=== PATIENT | female | born 1995 | race Caucasian/White ===

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

== ENCOUNTER 2017-01-06 12:51 | Outpatient (CLI) | payer OTHER | END 2017-01-06 12:52 | disposition critical access hospital (66) | DX: F41.9 Anxiety disorder, unspecified (principal); R52 Pain, unspecified; R25.2 Cramp and spasm | CPT/HCPCS: A0425; A0429 ==

== ENCOUNTER 2017-01-06 13:15 | Emergency (ER) | payer OTHER ==
[2017-01-06] MEDS ORDERED: SODIUM CHLORIDE 0.9% 1,000 ML IV ONE (14:16)
[2017-01-06] MEDS ORDERED: PROCHLORPERAZINE 10 MG/2 ML VIAL IVP STA (14:16)
[2017-01-06] MEDS ORDERED: DEXAMETHASONE 10 MG/ML VIAL IVP STA (14:16)
[2017-01-06] MEDS ORDERED: diphenhydrAMINE INJ 50 MG/ML VIAL IVP STA (14:16)
[2017-01-06] MEDS ORDERED: PROCHLORPERAZINE 10 MG/2 ML VIAL ONE (14:23)
[2017-01-06] MEDS ORDERED: diphenhydrAMINE INJ 50 MG/ML VIAL ONE (14:23)
[2017-01-06] MEDS ORDERED: DEXAMETHASONE 10 MG/ML VIAL ONE (14:24)
[2017-01-06] MEDS ORDERED: KETOROLAC 30 MG/ML VIAL IVP STA (14:33)
[2017-01-06] MEDS ORDERED: KETOROLAC 30 MG/ML VIAL ONE (14:38)
== END 2017-01-06 15:19 | disposition home or self-care (01) ==
DX: R51 Headache (principal); R03.0 Elevated blood-pressure reading, without diagnosis of hypertension; I34.1 Nonrheumatic mitral (valve) prolapse

== ENCOUNTER 2017-03-03 14:02 | Outpatient (CLI) | payer OTHER | END 2017-03-03 14:03 | disposition critical access hospital (66) | LOC: EMS 14:02 | PROVIDERS: ATTEND Surgery | DX: G43.909 Migraine, unspecified, not intractable, without status migrainosus (principal) | CPT/HCPCS: A0425; A0427 ==

== ENCOUNTER 2017-03-03 14:16 | Emergency (ER) | payer OTHER ==
--- NOTE | 2017-03-03 14:36 | ED Physician Documentation ---
PD HPI HEADACHE - Stated complaint Stated Complaint: R SIDED NUMBNESS VISION CHANGE - Chief complaint Chief Complaint: Neuro - History obtained from History obtained from: Patient - History of Present Illness Timing - onset: How many minutes ago (30) Timing - onset during: Light activity Timing - duration: Minutes (30 minutes ago, had right visual flashes and then right facial weakness, associated with headache. Has had similar symptoms a few times this year Dx as migraines. Had MRI brain done by PCP a month ago and was normal. Pt states has gotten Rx for Ibuprofen and Zofran for the headaches. Had gotten other meds Rx from ED on prior visits that worked well, per patient ( Promethazine PRN and Topiramate daily low dose).) Timing - details: Abrupt onset, Now resolved (vision and weakness improved but still with migraine EMERSON.) Worst headache ever?: No: Worst headache ever? (similar to other migraines.) Location: Front, Right Quality: Throbbing, Aching Associated symptoms: Nausea, Weakness (right face and arm). No: Fever, Stiff neck, Vomiting, Numbness, Seizure Improved by: No: Meds (ibuprofen) Worsened by: Light, Noise Contributing factors: No: Anticoagulated, Recent illness, Trauma Similar symptoms before: Diagnosis (migraine headaches new diagnosis in the past 6 months) Review of Systems Constitutional: denies: Fever, Chills Nose: denies: Rhinorrhea / runny nose, Congestion Throat: denies: Sore throat Respiratory: denies: Cough GI: reports: Nausea. denies: Abdominal Pain, Vomiting, Diarrhea : denies: Dysuria, Frequency, Missed period Skin: denies: Rash, Lesions Neurologic: denies: Syncope, Altered mental status, Head injury Psychiatric: denies: Depressed, Anxiety Endocrine: denies: Weight loss, Weight gain, Easy bruising / bleeding PD PAST MEDICAL HISTORY - Past Medical History Past Medical History: Yes Cardiovascular: Valve disorder Neuro: Headache/migraine Psych: Anxiety - Past Surgical History Past Surgical History: Yes HEENT: Tonsil/Adenoidectomy - Present Medications Home Medications: Ambulatory Orders Medication Instructions Recorded Confirmed Hydrocodone/Acetaminophen [[place] 1 each PO Q6H PRN #15 tablet 03/03/17 5-325 Tablet] Ibuprofen 400 mg PO TID PRN #20 tablet 03/03/17 Promethazine [Phenergan] 25 mg PO Q6H PRN #20 tab 03/03/17 Topiramate 25 mg PO DAILY #30 tablet 03/03/17 - Allergies Allergies/Adverse Reactions: Allergies Allergy/AdvReac Type Severity Reaction Status Date / Time acetaminophen [From Midol] Allergy Unknown Verified 03/03/17 14:24 pamabrom [From Midol] Allergy Unknown Verified 03/03/17 14:24 Sulfa (Sulfonamide Allergy Rash Verified 03/03/17 14:24 Antibiotics) - Social History Does the pt smoke?: No Smoking Status: Never smoker Does the pt drink ETOH?: No Does the pt have substance abuse?: No - Immunizations Immunizations are current?: No Immunizations: TDAP >10years/unknown PD ED PE NORMAL - Vitals Vital signs reviewed: Yes - General General: Alert and oriented X 3, No acute distress, Well developed/nourished - HEENT HEENT: PERRL, EOMI (light sensitive) - Neck Neck: Supple, no meningeal sign, No adenopathy - Cardiac Cardiac: RRR, No murmur - Respiratory Respiratory: Clear bilaterally - Abdomen Abdomen: Soft, Non tender - Derm Derm: Normal color, Warm and dry - Extremities Extremities: No tenderness to palpate, Normal ROM s pain, No edema, No calf tenderness / cord - Neuro Neuro: Alert and oriented X 3, 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 She has normal neuro exam still. ), considered differential (has had similar with migraines in the past. She says she gets them about 2-3 times per week moderate and has had 3-4 of these complex migraines with visual change or weakness. She had gotten Rx for prophylactic med in Sep and says she had less to none that month. Had been to PMD and gotten Rx for Ibuprofen for them. DId have MRI head done which was normal. ), d/w patient Departure - Departure Disposition: 01 Home, Self Care Clinical Impression: Migraine Qualifiers: Migraine type: hemiplegic Status migrainosus presence: without status migrainosus Intractability: not intractable Qualified Code(s): G43.409 - Hemiplegic migraine, not intractable, without status migrainosus Condition: Stable Record reviewed to determine appropriate education?: Yes Instructions: ED Headache Migraine Follow-Up: [facility] [Provider Group] Prescriptions: Ibuprofen 400 mg PO TID PRN #20 tablet PRN Reason: Headache Hydrocodone/Acetaminophen [[place] 5-325 Tablet] 1 each PO Q6H PRN #15 tablet PRN Reason: Pain Promethazine [Phenergan] 25 mg PO Q6H PRN #20 tab PRN Reason: Nausea / Vomiting Topiramate 25 mg PO DAILY #30 tablet Comments: Since your headaches are frequent enough, you may benefit from taking a medication daily to try to reduce the frequency of them. Topirimate nightly for the next month to see if less often headaches. For the migraines, try promethazine and Ibuprofen for them when you get one, and add Tylenol or hydrocodone as needed if not improved with those. Follow up with PMD in a few weeks to see how this regimen is doing. Discharge Date/Time: 03/03/17 16:09
[2017-03-03] MEDS ORDERED: SODIUM CHLORIDE 0.9% 1,000 ML IV ONE (14:52)
[2017-03-03] MEDS ORDERED: KETOROLAC 60 MG/2 ML VIAL IVP STA (14:52)
[2017-03-03] MEDS ORDERED: diphenhydrAMINE INJ 50 MG/ML VIAL IVP STA (14:53)
[2017-03-03] MEDS ORDERED: METOCLOPRAMIDE 10 MG/2 ML VIAL IVP STA (14:53)
[2017-03-03] MEDS ORDERED: KETOROLAC 30 MG/ML VIAL ONE (15:28)
[2017-03-03] MEDS ORDERED: METOCLOPRAMIDE 10 MG/2 ML VIAL ONE (15:28)
[2017-03-03 16:10] VITALS: BP 111/63
== END 2017-03-03 16:09 | disposition home or self-care (01) ==
LOC: EDUNIT# → ED 14:16
DX: G43.409 Hemiplegic migraine, not intractable, without status migrainosus (principal)
CPT/HCPCS: 96374; 96375; 99284

== ENCOUNTER 2017-06-08 12:15 | Outpatient (CLI) | payer OTHER | END 2017-06-08 12:16 | disposition short-term general hospital (02) | LOC: EMS 12:15 | PROVIDERS: ATTEND Surgery | DX: F41.9 Anxiety disorder, unspecified (principal); R51 Headache; R11.0 Nausea | CPT/HCPCS: A0425; A0429 ==

== ENCOUNTER 2017-08-05 15:56 | Outpatient (CLI) | payer OTHER | END 2017-08-05 15:57 | disposition critical access hospital (66) | LOC: EMS 15:56 | PROVIDERS: ATTEND Surgery | DX: R06.02 Shortness of breath (principal) | CPT/HCPCS: A0425; A0427 ==

== ENCOUNTER 2017-08-05 16:17 | Emergency (ER) | payer OTHER ==
[2017-08-05 17:05] LABS: BILIRUBIN,URINE NEGATIVE (NEGATIVE)
[2017-08-05 17:08] LABS: HCG UR QUAL NEGATIVE; UA w/ MICROSCOPIC CHARGE YES
[2017-08-05 17:30] LABS: WBC,URINE 0-3 /HPF (0-5)
--- NOTE | 2017-08-05 17:30 | ED Physician Documentation ---
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 denies: Palpitations Respiratory: reports: Dyspnea. denies: Cough GI: denies: Abdominal Pain, Nausea, Vomiting, Diarrhea : reports: LMP (07/26) Musculoskeletal: reports: Extremity pain (cramping hands and legs) Endocrine: denies: Easy bruising / bleeding Immunocompromised: denies: Immunocompromised PD PAST MEDICAL HISTORY - Past Medical History Past Medical History: Yes Cardiovascular: Valve disorder Neuro: Headache/migraine Psych: Anxiety - Past Surgical History Past Surgical History: Yes HEENT: Tonsil/Adenoidectomy - Present Medications Home Medications: Ambulatory Orders Medication Instructions Recorded Confirmed Hydrocodone/Acetaminophen [[place] 1 each PO Q6H PRN #15 tablet 03/03/17 5-325 Tablet] Ibuprofen 400 mg PO TID PRN #20 tablet 03/03/17 Promethazine [Phenergan] 25 mg PO Q6H PRN #20 tab 03/03/17 Topiramate 25 mg PO DAILY #30 tablet 03/03/17 Azithromycin [Zithromax] 250 mg PO DAILY #6 tablet 08/05/17 - Allergies Allergies/Adverse Reactions: Allergies Allergy/AdvReac Type Severity Reaction Status Date / Time acetaminophen [From Midol] Allergy Unknown Verified 03/03/17 14:24 pamabrom [From Midol] Allergy Unknown Verified 03/03/17 14:24 Sulfa (Sulfonamide Allergy Rash Verified 03/03/17 14:24 Antibiotics) - Social History Does the pt smoke?: No Smoking Status: Never smoker Does the pt drink ETOH?: No Does the pt have substance abuse?: No - Immunizations Immunizations are current?: No Immunizations: TDAP >10years/unknown PD ED PE NORMAL - Vitals Vital signs reviewed: Yes - General General: Alert and oriented X 3 - HEENT HEENT: PERRL - Neck Neck: Supple, no meningeal sign - Cardiac Cardiac: RRR, No murmur - Respiratory Respiratory: No respiratory distress, Clear bilaterally - Abdomen Abdomen: Soft, Non tender - Derm Derm: Normal color - Extremities Extremities: No edema, Other (mild shawn calf TTP s discoloration or edema) - Neuro Neuro: Alert and oriented X 3 Results - Vitals Vitals: Vital Signs - 24 hr 08/05/17 08/05/17 08/05/17 16:23 16:35 17:29 Temperature 37.4 C Heart Rate 100 90 Respiratory 16 18 Rate Blood Pressure 117/71 Blood Pressure 117/81 H [Right] O2 Saturation 100 100 08/05/17 19:51 Temperature 37.1 C Heart Rate 75 Respiratory 16 Rate Blood Pressure 107/69 Blood Pressure [Right] O2 Saturation 96 Oxygen O2 Source Room air - EKG (time done) 1627 Rate: Rate (enter#) (100) Rhythm: NSR [place]: Normal Intervals: Normal ME Ischemia: Normal ST segments - Labs Labs: Laboratory Tests 08/05/17 08/05/17 08/05/17 16:45 17:33 17:35 WBC 5.2 RBC 4.06 L Hgb 12.1 Hct 35.3 L MCV 86.9 MCH 29.7 MCHC 34.2 RDW 12.3 Plt Count 211 MPV 10.0 Neut # 2.6 Lymph # 1.9 [place] # 0.5 Eos # 0.1 Baso # 0.1 Absolute Nucleated RBC 0.00 Nucleated RBC % 0.0 D-Dimer 221.5 Sodium Potassium Chloride Carbon Dioxide Anion Gap BUN Creatinine Estimated GFR (MDRD) Glucose Calcium Total Bilirubin AST ALT Alkaline Phosphatase Troponin I Total Protein Albumin Globulin Albumin/Globulin Ratio Lipase Urine Color YELLOW Urine Clarity SL. CLOUDY Urine pH 7.0 Ur Specific [place] 1.010 Urine Protein NEGATIVE Urine Glucose (UA) NEGATIVE Urine Ketones NEGATIVE Urine Occult Blood NEGATIVE Urine Nitrite NEGATIVE Urine Bilirubin NEGATIVE Urine Urobilinogen 0.2 (NORMAL) Ur Leukocyte Esterase NEGATIVE Urine RBC None Seen Urine WBC 0-3 Ur Squamous Epith Cells MOD Squamous H Amorphous Sediment Marked Urine Bacteria None Seen Ur Microscopic Review INDICATED Urine Culture Comments NOT INDICATED Urine HCG, Qual NEGATIVE 08/05/17 08/05/17 17:35 17:35 WBC RBC Hgb Hct MCV MCH MCHC RDW Plt Count MPV Neut # Lymph # [place] # Eos # Baso # Absolute Nucleated RBC Nucleated RBC % D-Dimer Sodium 140 Potassium 3.4 L Chloride 105 Carbon Dioxide 25 Anion Gap 10.0 BUN 7 Creatinine 0.6 Estimated GFR (MDRD) 127 Glucose 104 H Calcium 9.0 Total Bilirubin 0.4 AST 18 ALT < 10 L Alkaline Phosphatase 40 L Troponin I < 0.04 Total Protein 7.3 Albumin 4.2 Globulin 3.1 Albumin/Globulin Ratio 1.4 Lipase 26 Urine Color Urine Clarity Urine pH Ur Specific [place] Urine Protein Urine Glucose (UA) Urine Ketones Urine Occult Blood Urine Nitrite Urine Bilirubin Urine Urobilinogen Ur Leukocyte Esterase Urine RBC Urine WBC Ur Squamous Epith Cells Amorphous Sediment Urine Bacteria Ur Microscopic Review Urine Culture Comments Urine HCG, Qual - Rads (name of study) CXR Radiology: See rad report (L posterior infiltrate) CTPA Radiology: See rad report (no PE, dense lobulated consolidation, rec follo up to confirm clearing) PD MEDICAL DECISION MAKING - ED course ED course: EKG neg needed HCG to proceed - it is neg PERC + (HR > 100 during my exam) d dimer neg ordered CXR and meds CXT with consolidation - but no fever cough = PERC + but d dimer WNL - need to explain opacity - sx not c/w pna - will CT Departure - Departure Disposition: 01 Home, Self Care Clinical Impression: Pneumonia Qualifiers: Pneumonia type: due to unspecified organism Laterality: left Lung location: lower lobe of lung Qualified Code(s): J18.1 - Lobar pneumonia, unspecified organism Condition: Good Instructions: ED Pneumonia Adult Follow-Up: [facility] [Primary Care Provider] - Prescriptions: Azithromycin [Zithromax] 250 mg PO DAILY #6 tablet Comments: The xray and then the CT scan showed a somewhat unusual looking infection in the lower left lung. I have prescribed antibiotics But it is very important that your follow up with your PMD in about 2 weeks to get repeat imaging to be sure the abnormality clears up with antibiotics. If it does not you might need a referral to a lung specialist Recommend motrin and robitussin AC as neded for pain Return if worse
[2017-08-05 17:39] LABS: UR CULTURE IF IND NOT INDICATED
[2017-08-05] MEDS ORDERED: KETOROLAC 60 MG/2 ML VIAL IVP STA (18:28)
[2017-08-05 18:42] LABS: BASOPHILS # (AUTO) 0.1 10^3/uL (0.0-0.1); BASOPHILS % (AUTO) 1.1 %; EOSINOPHILS # (AUTO) 0.1 10^3/uL (0.0-0.7); EOSINOPHILS % (AUTO) 2.5 %; HCT - HEMATOCRIT 35.3 % (37.0-47.0); HGB - HEMOGLOBIN 12.1 g/dL (12.0-16.0); LYMPHOCYTES # (AUTO) 1.9 10^3/uL (1.5-3.5); LYMPHOCYTES % (AUTO) 37.2 %; MEAN CORPUSCULAR HEMOGLOBIN 29.7 pg (27.0-31.0); MEAN CORPUSCULAR HGB CONC 34.2 g/dL (32.0-36.0); MEAN CORPUSCULAR VOLUME 86.9 fL (81.0-99.0); MONOCYTES # (AUTO) 0.5 10^3/uL (0.0-1.0); MONOCYTES % (AUTO) 9.7 %; NEUTROPHILS # (AUTO) 2.6 10^3/uL (1.5-6.6); NEUTROPHILS % (AUTO) 49.5 %; RED BLOOD COUNT 4.06 10^6/uL (4.20-5.40); RED CELL DISTRIBUTION WIDTH 12.3 % (12.0-15.0); UNCORRECTED WHITE BLOOD COUNT 5.2 x10^3/uL; WHITE BLOOD COUNT 5.2 x10^3/uL (4.8-10.8)
[2017-08-05] MEDS ORDERED: KETOROLAC 30 MG/ML VIAL ONE (18:47)
[2017-08-05 18:51] LABS: ALBUMIN/GLOBULIN RATIO 1.4 (1.0-2.2); BILIRUBIN,TOTAL 0.4 mg/dL (0.2-1.0); BUN - BLOOD UREA NITROGEN 7 mg/dL (6-20); CARBON DIOXIDE - CO2 25 mmol/L (21-32); CHLORIDE 105 mmol/L (101-111); CREATININE 0.6 mg/dL (0.4-1.0); GFR - MDRD 127 (>89); GLUCOSE 104 mg/dL (70-100); LIPASE 26 U/L (22-51); POTASSIUM 3.4 mmol/L (3.5-5.0); SODIUM 140 mmol/L (135-145); TOTAL PROTEIN 7.3 g/dL (6.7-8.2)
--- NOTE | 2017-08-05 19:04 | XRAY Preliminary Report ---
Exam: XR CHEST 2 VIEW PA/LAT IMPRESSION: Left posterior basilar infiltrate. [facility] SITE ID: [id number]
--- NOTE | 2017-08-05 19:06 | XRAY Report ---
EXAM: CHEST RADIOGRAPHY EXAM DATE: 08/05/2017 06:40 PM. CLINICAL HISTORY: Chest pain. COMPARISON: None. TECHNIQUE: 2 views. FINDINGS: Lungs/Pleura: Patchy infiltration in left posterior base. Otherwise clear. No effusion or pneumothora x. Mediastinum: Heart and mediastinal contours are unremarkable. Upper lobe vessels not distended. Other: Scoliosis. IMPRESSION: Left posterior basilar infiltrate. [facility] Referring Provider Line: [phone] SITE ID: [id number]
[2017-08-05] MEDS ORDERED: IOPAMIDOL-300 100 ML VIAL ONE (20:29)
[2017-08-05] MEDS ORDERED: IOPAMIDOL-300 100 ML VIAL IVP ONE (21:07)
--- NOTE | 2017-08-05 21:26 | CT Preliminary Report ---
Exam: CT CHEST ANGIO (PE) IMPRESSION: 1. Negative for pulmonary embolism at this time. Unremarkable aorta. 2. Left lower lobe infiltration with dense lobulated consolidation. Follow-up is recommended to [facility] complete clearing. [facility] SITE ID: [id number]
--- NOTE | 2017-08-05 21:29 | CT Report ---
EXAM: CT ANGIOGRAM CHEST EXAM DATE: 08/05/2017 09:16 PM. CLINICAL HISTORY: Chest pain, nausea. COMPARISON: None. TECHNIQUE: Routine helical imaging was performed through the chest in the pulmonary arterial phase. I V Contrast: 80 cc Isovue 300. Reconstructions: Sagittal, coronal, and 3-D MIP. In accordance with CT protocol optimization, one or more of the following dose reduction techniques w ere utilized for this exam: automated exposure control, adjustment of mA and/or KV based on patient s ize, or use of iterative reconstructive technique. FINDINGS: Pulmonary Arteries: Diagnostic quality: Adequate through the segmental arteries. No evidence for acute or chronic pulmona ry emboli. RV/LV is within normal limits. There is no interventricular septal bowing. There is scant reflux of c ontrast material in the IVC. Lungs/Pleura: Lobulated masslike density in left lower lobe measuring about 3.5 x 2.4 cm with some ad jacent hazy infiltration and additional nodularity. Otherwise clear. No effusion or pneumothorax. Mediastinum: Normal heart size. No pericardial effusion. No coronary artery calcifications. No lympha denopathy. Thoracic Aorta: Unremarkable. Upper Abdomen: Unremarkable. Other: None. IMPRESSION: 1. Negative for pulmonary embolism at this time. Unremarkable aorta. 2. Left lower lobe infiltration with dense lobulated consolidation. Follow-up is recommended to [facility] complete clearing. [facility] Referring Provider Line: [phone] SITE ID: [id number]
[2017-08-05 21:47] VITALS: BP 100/67
[2017-08-05] MEDS ORDERED: AZITHROMYCIN 250 MG TABLET PO STA (21:52)
[2017-08-05] MEDS ORDERED: AZITHROMYCIN 250 MG TABLET PO ONE (22:08)
== END 2017-08-05 22:25 | disposition home or self-care (01) ==
LOC: EDUNIT# → ED 16:17
DX: J18.9 Pneumonia, unspecified organism (principal)
CPT/HCPCS: 36415; 71020; 71275; 80053; 81001; 81025; 83690; 84484; 85025; 85379; 93005; 96374; 99284; A9270; Q9967; 81003; 87086

== ENCOUNTER 2017-10-12 13:25 | Outpatient (CLI) | payer OTHER | END 2017-10-12 13:26 | disposition short-term general hospital (02) | LOC: EMS 13:25 | PROVIDERS: ATTEND Surgery | DX: R06.02 Shortness of breath (principal); R51 Headache; R07.9 Chest pain, unspecified | CPT/HCPCS: A0425; A0429; A0888 ==

== ENCOUNTER 2017-12-30 10:23 | Emergency (ER) | payer OTHER ==
[2017-12-30 10:53] LABS: HCG UR QUAL NEGATIVE
[2017-12-30 10:54] LABS: BASOPHILS # (AUTO) 0.1 10^3/uL (0.0-0.1); BASOPHILS % (AUTO) 0.8 %; EOSINOPHILS # (AUTO) 0.4 10^3/uL (0.0-0.7); EOSINOPHILS % (AUTO) 5.9 %; HGB - HEMOGLOBIN 13.9 g/dL (12.0-16.0); LYMPHOCYTES # (AUTO) 2.4 10^3/uL (1.5-3.5); LYMPHOCYTES % (AUTO) 34.2 %; MEAN CORPUSCULAR HGB CONC 34.6 g/dL (32.0-36.0); MEAN CORPUSCULAR VOLUME 86.8 fL (81.0-99.0); MONOCYTES # (AUTO) 0.6 10^3/uL (0.0-1.0); MONOCYTES % (AUTO) 8.8 %; NEUTROPHILS # (AUTO) 3.5 10^3/uL (1.5-6.6); NEUTROPHILS % (AUTO) 50.3 %; PLT - PLATELET COUNT 203 10^3/uL (130-450); RED BLOOD COUNT 4.63 10^6/uL (4.20-5.40); RED CELL DISTRIBUTION WIDTH 12.5 % (12.0-15.0); WHITE BLOOD COUNT 6.9 x10^3/uL (4.8-10.8)
[2017-12-30 11:07] LABS: ALBUMIN 5.4 g/dL (3.2-5.5); ALBUMIN/GLOBULIN RATIO 1.5 (1.0-2.2); BILIRUBIN,TOTAL 0.8 mg/dL (0.2-1.0); CALCIUM 9.4 mg/dL (8.5-10.3); CREATININE 0.7 mg/dL (0.4-1.0); TOTAL PROTEIN 9.1 g/dL (6.7-8.2)
[2017-12-30 11:40] LABS: BILIRUBIN,URINE NEGATIVE (NEGATIVE); CLARITY,URINE CLOUDY (CLEAR); GLUCOSE, URINE (UA) NEGATIVE (NEGATIVE); KETONES,URINE (UA) NEGATIVE (NEGATIVE); LEUKOCYTE ESTERASE, URINE NEGATIVE (NEGATIVE); NITRITE,URINE POSITIVE (NEGATIVE); OCCULT BLOOD,URINE NEGATIVE (NEGATIVE); PROTEIN,URINE NEGATIVE (NEGATIVE); UROBILINOGEN,URINE 0.2 (NORMAL) E.U./dL (NORMAL)
[2017-12-30 11:41] LABS: BACTERIA,URINE Many /HPF (None Seen); MUCUS,URINE Few Strands; RBC,URINE 0-5 /HPF (0-5); SQUAMOUS EPITHELIAL CELL,UR MANY Squamous (<= Few)
--- NOTE | 2017-12-30 12:01 | ED Physician Documentation ---
History of Present Illness - Stated complaint Stated Complaint: LOW GLUCOSE - Chief complaint Chief Complaint: General - History obtained from History obtained from: Patient - History of Present Illness Timing: Today - Additonal information Additional information: 22-year-old female did not feel well when she went to bed last night, she felt okay when she woke up this morning, she got ready for work in her usual fashion , she did have a peanut butter and jelly sandwich for breakfast and some Gatorade. She went to work and she began to feel lightheaded and dizzy and she had to call off work. Her boss brought her into the emergency department for evaluation. She works as a dental health care assistant. She has been having some urinary urgency for the past 3 days and she is on day 27 of her cycle. Review of Systems Constitutional: denies: Fever Eyes: denies: Decreased vision Ears: denies: Ear pain Nose: denies: Rhinorrhea / runny nose, Congestion Throat: denies: Sore throat Cardiac: denies: Chest pain / pressure, Palpitations Respiratory: denies: Dyspnea, Cough GI: denies: Abdominal Pain, Nausea, Vomiting, Constipation, Diarrhea : reports: Frequency, Incontinent (nearly 2 nights ago.), Other (urgency). denies: Dysuria, Hematuria, Discharge Skin: denies: Rash Musculoskeletal: denies: Neck pain, Back pain, Extremity pain Neurologic: reports: Generalized weakness. denies: Focal weakness, Numbness PD PAST MEDICAL HISTORY - Past Medical History Past Medical History: Yes Cardiovascular: Valve disorder Neuro: Headache/migraine Psych: Anxiety - Past Surgical History Past Surgical History: Yes HEENT: Tonsil/Adenoidectomy - Present Medications Home Medications: Ambulatory Orders Medication Instructions Recorded Confirmed Hydrocodone/Acetaminophen [[place] 1 each PO Q6H PRN #15 tablet 03/03/17 5-325 Tablet] Ibuprofen 400 mg PO TID PRN #20 tablet 03/03/17 Promethazine [Phenergan] 25 mg PO Q6H PRN #20 tab 03/03/17 Topiramate 25 mg PO DAILY #30 tablet 03/03/17 Azithromycin [Zithromax] 250 mg PO DAILY #6 tablet 08/05/17 Ibuprofen [Motrin] 400 mg PO Q6H PRN #30 tablet 08/05/17 guaiFENesin/CODEINE [Robitussin AC] 5 - 10 ml PO Q6H PRN #120 udc 08/05/17 Amox/Clav 875/125 [Augmentin] 1 each PO Q12H #10 tablet 12/30/17 - Allergies Allergies/Adverse Reactions: Allergies Allergy/AdvReac Type Severity Reaction Status Date / Time acetaminophen [From Midol] Allergy Unknown Verified 03/03/17 14:24 pamabrom [From Midol] Allergy Unknown Verified 03/03/17 14:24 Sulfa (Sulfonamide Allergy Rash Verified 03/03/17 14:24 Antibiotics) - Social History Does the pt smoke?: No Smoking Status: Never smoker Does the pt drink ETOH?: No Does the pt have substance abuse?: No - Immunizations Immunizations are current?: No Immunizations: TDAP >10years/unknown PD ED PE NORMAL - Vitals Vital signs reviewed: Yes (normal ) - General General: Alert and oriented X 3, No acute distress, Well developed/nourished - HEENT HEENT: Atraumatic, PERRL, EOMI, Other (tympanosclerosis bilaterally without inflammation. ) - Neck Neck: Supple, no meningeal sign, No bony TTP - Cardiac Cardiac: RRR, No murmur - Respiratory Respiratory: No respiratory distress, Clear bilaterally - Abdomen Abdomen: Soft, Non tender - Back Back: No CVA TTP, No spinal TTP - Derm Derm: Normal color, Warm and dry, No rash - Extremities Extremities: No deformity, No edema - Neuro Neuro: No motor deficit, No sensory deficit Eye Opening: Spontaneous Motor: Obeys Commands Verbal: Oriented GCS Score: 15 - Psych Psych: Normal mood, Normal affect Results - Vitals Vitals: Vital Signs - 24 hr 12/30/17 10:31 Temperature 36.8 C Heart Rate 81 Respiratory 16 Rate Blood Pressure 112/77 O2 Saturation 100 Oxygen O2 Source Room air - EKG (time done) 1058 Rate: Rate (enter#) (73) Rhythm: NSR QRS: Low voltage Compare to prior EKG: Changed from prior EKG (SPT 08/05/2017 rate has decreased. ) Computer interpretation: Agree with computer - Labs Labs: Laboratory Tests 12/30/17 12/30/17 12/30/17 10:45 10:51 10:51 WBC 6.9 RBC 4.63 Hgb 13.9 Hct 40.2 MCV 86.8 MCH 30.0 MCHC 34.6 RDW 12.5 Plt Count 203 MPV 10.0 Neut # 3.5 Lymph # 2.4 [place] # 0.6 Eos # 0.4 Baso # 0.1 Absolute Nucleated RBC 0.00 Nucleated RBC % 0.1 Sodium 136 Potassium 3.4 L Chloride 104 Carbon Dioxide 25 Anion Gap 7.0 BUN 9 Creatinine 0.7 Estimated GFR (MDRD) 107 Glucose 77 Calcium 9.4 Total Bilirubin 0.8 AST 18 ALT 11 Alkaline Phosphatase 39 L Total Protein 9.1 H Albumin 5.4 Globulin 3.7 Albumin/Globulin Ratio 1.5 Lipase 19 L Urine Color Urine Clarity Urine pH Ur Specific [place] 1.020 Urine Protein Urine Glucose (UA) Urine Ketones Urine Occult Blood Urine Nitrite Urine Bilirubin Urine Urobilinogen Ur Leukocyte Esterase Urine RBC Urine WBC Ur Squamous Epith Cells Urine Bacteria Urine Mucus Ur Microscopic Review Urine Culture Comments Urine HCG, Qual NEGATIVE 12/30/17 10:51 WBC RBC Hgb Hct MCV MCH MCHC RDW Plt Count MPV Neut # Lymph # [place] # Eos # Baso # Absolute Nucleated RBC Nucleated RBC % Sodium Potassium Chloride Carbon Dioxide Anion Gap BUN Creatinine Estimated GFR (MDRD) Glucose Calcium Total Bilirubin AST ALT Alkaline Phosphatase Total Protein Albumin Globulin Albumin/Globulin Ratio Lipase Urine Color YELLOW Urine Clarity CLOUDY Urine pH 6.0 Ur Specific [place] 1.020 Urine Protein NEGATIVE Urine Glucose (UA) NEGATIVE Urine Ketones NEGATIVE Urine Occult Blood NEGATIVE Urine Nitrite POSITIVE H Urine Bilirubin NEGATIVE Urine Urobilinogen 0.2 (NORMAL) Ur Leukocyte Esterase NEGATIVE Urine RBC 0-5 Urine WBC 0-3 Ur Squamous Epith Cells MANY Squamous H Urine Bacteria Many H Urine Mucus Few Strands Ur Microscopic Review INDICATED Urine Culture Comments NOT INDICATED Urine HCG, Qual Procedures - IVC sono (time) 1155 Bedside IVC sono: IVC measures (cm) (1.51), [place] PD MEDICAL DECISION MAKING - ED course Complexity details: reviewed old records, reviewed results, re-evaluated patient , considered differential, d/w patient, d/w family ED course: 22-year-old female with 3 days of urinary symptoms has lightheaded and dizziness today she does have bacteria and nitrite in the urine. Departure - Departure Disposition: 01 Home, Self Care Clinical Impression: UTI (urinary tract infection) Qualifiers: Urinary tract infection type: acute cystitis Hematuria presence: without hematuria Qualified Code(s): N30.00 - Acute cystitis without hematuria Condition: Stable Instructions: ED UTI Cystitis Female Follow-Up: [facility] [Provider Group] Prescriptions: Amox/Clav 875/125 [Augmentin] 1 each PO Q12H #10 tablet Forms: Activity restrictions
[2017-12-30] MEDS ORDERED: POTASSIUM BICARB 25 MEQ TABLET PO STA (12:03)
[2017-12-30 12:38] VITALS: BP 108/76
== END 2017-12-30 12:38 | disposition home or self-care (01) ==
LOC: ED 10:23
DX: N30.00 Acute cystitis without hematuria (principal); H74.03 Tympanosclerosis, bilateral; R42 Dizziness and giddiness
CPT/HCPCS: 36415; 80053; 81001; 81025; 83690; 85025; 93005; 99283; A9270; 81003; 87086

== ENCOUNTER 2018-01-14 10:36 | Outpatient (CLI) | payer OTHER | END 2018-01-14 10:37 | disposition critical access hospital (66) | LOC: EMS 10:36 | PROVIDERS: ATTEND Surgery | DX: O99.89 Other specified diseases and conditions complicating pregnancy, childbirth and the puerperium (principal); R10.9 Unspecified abdominal pain | CPT/HCPCS: A0425; A0427 ==

== ENCOUNTER 2018-01-14 10:59 | Emergency (ER) | payer OTHER ==
[2018-01-14 11:26] LABS: BASOPHILS # (AUTO) 0.1 10^3/uL (0.0-0.1); BASOPHILS % (AUTO) 0.9 %; EOSINOPHILS % (AUTO) 0.5 %; HGB - HEMOGLOBIN 11.4 g/dL (12.0-16.0); LYMPHOCYTES # (AUTO) 1.1 10^3/uL (1.5-3.5); LYMPHOCYTES % (AUTO) 15.8 %; MEAN CORPUSCULAR HEMOGLOBIN 30.1 pg (27.0-31.0); MEAN CORPUSCULAR HGB CONC 34.6 g/dL (32.0-36.0); MEAN CORPUSCULAR VOLUME 87.2 fL (81.0-99.0); MEAN PLATELET VOLUME 9.1 fL (7.9-10.8); MONOCYTES # (AUTO) 0.6 10^3/uL (0.0-1.0); MONOCYTES % (AUTO) 9.2 %; NEUTROPHILS # (AUTO) 5.1 10^3/uL (1.5-6.6); NEUTROPHILS % (AUTO) 73.6 %; PLT - PLATELET COUNT 173 10^3/uL (130-450); RED BLOOD COUNT 3.79 10^6/uL (4.20-5.40); RED CELL DISTRIBUTION WIDTH 12.5 % (12.0-15.0); WHITE BLOOD COUNT 6.9 x10^3/uL (4.8-10.8)
[2018-01-14 11:28] LABS: BILIRUBIN,URINE NEGATIVE (NEGATIVE); GLUCOSE, URINE (UA) NEGATIVE (NEGATIVE); KETONES,URINE (UA) 15 mg/dL (NEGATIVE); LEUKOCYTE ESTERASE, URINE NEGATIVE (NEGATIVE); NITRITE,URINE NEGATIVE (NEGATIVE); OCCULT BLOOD,URINE NEGATIVE (NEGATIVE); PH,URINE 7.5 PH (5.0-7.5); PROTEIN,URINE NEGATIVE (NEGATIVE); UROBILINOGEN,URINE 0.2 (NORMAL) E.U./dL (NORMAL)
[2018-01-14 11:32] LABS: CLARITY,URINE CLEAR (CLEAR)
[2018-01-14 11:38] LABS: HCG UR QUAL POSITIVE
[2018-01-14 11:57] LABS: ALBUMIN 4.1 g/dL (3.2-5.5); ALBUMIN/GLOBULIN RATIO 1.5 (1.0-2.2); ALKALINE PHOSPHATASE 29 IU/L (42-121); ALT ALANINE AMINOTRANSFERASE < 10 IU/L (10-60); AST ASPARTATE AMINOTRANSFERASE 16 IU/L (10-42); BILIRUBIN,TOTAL 0.6 mg/dL (0.2-1.0); BUN - BLOOD UREA NITROGEN 9 mg/dL (6-20); CALCIUM 8.3 mg/dL (8.5-10.3); CARBON DIOXIDE - CO2 22 mmol/L (21-32); CHLORIDE 108 mmol/L (101-111); CREATININE 0.4 mg/dL (0.4-1.0); GFR - MDRD 203 (>89); GLUCOSE 91 mg/dL (70-100); LIPASE 22 U/L (22-51); SODIUM 135 mmol/L (135-145); TOTAL PROTEIN 6.8 g/dL (6.7-8.2)
[2018-01-14] MEDS ORDERED: ACETAMINOPHEN 325 MG TABLET PO STA (12:26)
--- NOTE | 2018-01-14 12:29 | ED Physician Documentation ---
PD HPI ABD PAIN - Stated complaint Stated Complaint: ABD PX - Chief complaint Chief Complaint: Abd Pain - History obtained from History obtained from: Patient - History of Present Illness Timing - onset: Today (This is a at 5 weeks gestation, history of ovarian cyst. She presents with sudden and sometimes severe cramping central abdominal pain radiating up and downs in the last 3 hours. Mild nausea but no vomiting. Denies any problems with bowel movements or bleeding. No history of ovarian or other abdominal surgeries.) Review of Systems Constitutional: denies: Fever, Chills Respiratory: denies: Dyspnea, Cough GI: reports: Abdominal Pain, Nausea. denies: Vomiting, Constipation, Diarrhea : denies: Dysuria, Frequency PD PAST MEDICAL HISTORY - Past Medical History Cardiovascular: Valve disorder Neuro: Headache/migraine Psych: Anxiety - Past Surgical History Past Surgical History: Yes HEENT: Tonsil/Adenoidectomy - Present Medications Home Medications: Ambulatory Orders Medication Instructions Recorded Confirmed Pnv95/Ferrous Fumarate/FA 01/14/18 [ Tablet] - Allergies Allergies/Adverse Reactions: Allergies Allergy/AdvReac Type Severity Reaction Status Date / Time acetaminophen [From Midol] Allergy Unknown Verified 03/03/17 14:24 pamabrom [From Midol] Allergy Unknown Verified 03/03/17 14:24 Sulfa (Sulfonamide Allergy Rash Verified 03/03/17 14:24 Antibiotics) steroids Allergy Intermediate Rash Uncoded 01/14/18 11:04 - Social History Does the pt smoke?: No Smoking Status: Never smoker Does the pt drink ETOH?: No Does the pt have substance abuse?: No - Immunizations Immunizations are current?: No Immunizations: TDAP >10years/unknown PD ED PE NORMAL - Vitals Vital signs reviewed: Yes - General General: Alert and oriented X 3, No acute distress - Abdomen Abdomen: Normal bowel sounds, Other (Mild suprapubic and periumbilical tenderness without surgical signs. Bedside ultrasound was performed, I am unable to see an IUP, but there is no free fluid either.) - Derm Derm: Normal color, Warm and dry - Neuro Neuro: Alert and oriented X 3, Normal speech - Psych Psych: Normal mood, Normal affect Results - Vitals Vitals: Vital Signs - 24 hr 01/14/18 11:00 Temperature 37.1 C Heart Rate 97 Respiratory 16 Rate Blood Pressure 109/79 O2 Saturation 98 Oxygen O2 Source Room air - Labs Labs: Laboratory Tests 01/14/18 01/14/18 01/14/18 11:09 11:09 11:20 WBC 6.9 RBC 3.79 L Hgb 11.4 L Hct 33.0 L MCV 87.2 MCH 30.1 MCHC 34.6 RDW 12.5 Plt Count 173 MPV 9.1 Neut # 5.1 Lymph # 1.1 L [place] # 0.6 Eos # 0.0 Baso # 0.1 Absolute Nucleated RBC 0.00 Nucleated RBC % 0.0 Sodium 135 Potassium 3.2 L Chloride 108 Carbon Dioxide 22 Anion Gap 5.0 L BUN 9 Creatinine 0.4 Estimated GFR (MDRD) 203 Glucose 91 Calcium 8.3 L Total Bilirubin 0.6 AST 16 ALT < 10 L Alkaline Phosphatase 29 L Total Protein 6.8 Albumin 4.1 Globulin 2.7 Albumin/Globulin Ratio 1.5 Lipase 22 HCG, Quant 75406.00 Urine Color Urine Clarity Urine pH Ur Specific [place] Urine Protein Urine Glucose (UA) Urine Ketones Urine Occult Blood Urine Nitrite Urine Bilirubin Urine Urobilinogen Ur Leukocyte Esterase Ur Microscopic Review Urine Culture Comments Urine HCG, Qual 01/14/18 11:25 WBC RBC Hgb Hct MCV MCH MCHC RDW Plt Count MPV Neut # Lymph # [place] # Eos # Baso # Absolute Nucleated RBC Nucleated RBC % Sodium Potassium Chloride Carbon Dioxide Anion Gap BUN Creatinine Estimated GFR (MDRD) Glucose Calcium Total Bilirubin AST ALT Alkaline Phosphatase Total Protein Albumin Globulin Albumin/Globulin Ratio Lipase HCG, Quant Urine Color YELLOW Urine Clarity CLEAR Urine pH 7.5 Ur Specific [place] 1.010 Urine Protein NEGATIVE Urine Glucose (UA) NEGATIVE Urine Ketones 15 H Urine Occult Blood NEGATIVE Urine Nitrite NEGATIVE Urine Bilirubin NEGATIVE Urine Urobilinogen 0.2 (NORMAL) Ur Leukocyte Esterase NEGATIVE Ur Microscopic Review NOT INDICATED Urine Culture Comments NOT INDICATED Urine HCG, Qual POSITIVE - Rads (name of study) Pelvic sono Radiology: Prelim report reviewed (Intrauterine gestational sac with yolk sac, too early to see pole or heart motion, there is a left ovarian corpus luteum cyst and a small amount of free fluid.) Departure - Departure Disposition: 01 Home, Self Care Clinical Impression: 5 weeks gestation of Abdominal pain Qualifiers: Abdominal location: generalized Qualified Code(s): R10.84 - Generalized abdominal pain Condition: Good Record reviewed to determine appropriate education?: Yes Instructions: ED Abdominal Pain Rule Out Ectopic Comments: You need to have your beta hCG rechecked in 48 hours, [place]. The value today was [phone]. Return if worsening or if new symptoms develop. Forms: Activity restrictions
[2018-01-14 14:09] VITALS: BP 107/71
--- NOTE | 2018-01-18 15:54 | Ultrasound Report ---
REVISED: REPORT ORIG. SIGNED ON 01/18/2018@1601; ORDERS LINKED ON [id number] FIRST TRIMESTER OB ULTRASOUND WITH TRANSVAGINAL: 01/14/2018 CLINICAL INDICATION: Pain. TECHNIQUE: Transabdominal pelvic ultrasound performed for global evaluation. Transvaginal pelvic ultrasound performed for detailed evaluation. Real-time scanning performed and static images obtained. LAST MENSTRUAL PERIOD: 12/04/2017 Clinical Age: 5 weeks 6 days (LMP) US Age: 5 weeks 0 days (9.9 mm gestational sac: MGSD) EFW [place]: -- EFW% [place]: -- Heart Rate: -- EDC: 09/10/2018 US EDC: 09/15/2018 (gestational sac) BPD [place]: -- HC [place]: -- AC [place]lock: -- FL Hadlock: -- Presentation: -- Placental Location: -- Cervical Length: -- Amniotic Fluid: -- FINDINGS: The uterus is anteverted. There is a gestational sac within the endometrial canal. Mean sac diameter is 10 mm, too small for visualization of pole or heart rate. A yolk sac is present. The gestational sac appears regular. No perigestational hemorrhage is seen. By gestational sac diameter, the dates 5 weeks 0 days (5 weeks 6 days by LMP). The right ovary measures 4.1 x 2.1 x 1.6 cm, and appears unremarkable. The left ovary measures 2.9 x 2.4 x 2.3 cm, and demonstrates a 1.9 cm corpus luteum. A small amount of free fluid is present in the cul-de-sac. IMPRESSION: INTRAUTERINE GESTATIONAL SAC, WITH YOLK SAC VISUALIZED. BY MEAN SAC DIAMETER, SIZE IS CONSISTENT WITH LMP DATING. IT IS TOO EARLY FOR VISUALIZATION OF POLE OR HEART RATE. IF CLINICALLY WARRANTED, FOLLOWUP SCAN IN 1-2 WEEKS FOR VIABILITY IS RECOMMENDED. TD: 01/14/2018 17:17 [email or web address]
== END 2018-01-14 14:22 | disposition home or self-care (01) ==
LOC: EDUNIT# → ED 10:59
DX: O34.81 Maternal care for other abnormalities of pelvic organs, first trimester (principal); R10.84 Generalized abdominal pain; N83.12 Corpus luteum cyst of left ovary; Z3A.01 Less than 8 weeks gestation of pregnancy
CPT/HCPCS: 36415; 76801; 76817; 80053; 81003; 81025; 83690; 84702; 85025; 99283; 99284; A9270; 81001; 87086

== ENCOUNTER 2018-03-10 14:59 | Emergency (ER) | payer OTHER ==
[2018-03-10 15:30] LABS: BILIRUBIN,URINE NEGATIVE (NEGATIVE); GLUCOSE, URINE (UA) NEGATIVE (NEGATIVE); KETONES,URINE (UA) NEGATIVE (NEGATIVE); LEUKOCYTE ESTERASE, URINE NEGATIVE (NEGATIVE); NITRITE,URINE NEGATIVE (NEGATIVE); OCCULT BLOOD,URINE NEGATIVE (NEGATIVE); PROTEIN,URINE NEGATIVE (NEGATIVE); UROBILINOGEN,URINE 0.2 (NORMAL) E.U./dL (NORMAL)
[2018-03-10 15:32] LABS: CLARITY,URINE CLOUDY (CLEAR); HCG UR QUAL POSITIVE
[2018-03-10 15:44] LABS: AMORPHOUS SEDIMENT,UR Moderate /LPF; BACTERIA,URINE Moderate /HPF (None Seen); RBC,URINE 0-5 /HPF (0-5); SQUAMOUS EPITHELIAL CELL,UR MANY Squamous (<= Few)
[2018-03-10] MEDS ORDERED: SODIUM CHLORIDE 0.9% 1,000 ML IV ONE (17:10)
--- NOTE | 2018-03-10 17:11 | ED Physician Documentation ---
History of Present Illness - Stated complaint Stated Complaint: DIZZY/CHEST DISCOMFORT/13 WKS PREG - Chief complaint Chief Complaint: Neuro - History obtained from History obtained from: Patient, Family - History of Present Illness Timing: Today - Additonal information Additional information: 22-year-old female who is 14 weeks has had a near syncopal episode while at work today. She works as a dental hygienist and she states that she felt lightheaded and dizzy had to go sit down and felt palpitations and became diaphoretic. She did spend some time over the weekend in [place] where it was very hot. She suspects she may be dehydrated and she complains that there is some dark color to her urine. Review of Systems Constitutional: reports: Fatigue. denies: Fever, Chills Eyes: denies: Decreased vision Ears: denies: Ear pain Nose: denies: Rhinorrhea / runny nose, Congestion Throat: denies: Sore throat Cardiac: reports: Palpitations. denies: Chest pain / pressure Respiratory: denies: Dyspnea, Cough GI: denies: Abdominal Pain, Nausea, Vomiting, Constipation, Diarrhea : denies: Dysuria, Frequency Skin: denies: Rash Musculoskeletal: denies: Neck pain, Back pain, Extremity pain Neurologic: reports: Near syncope. denies: Generalized weakness, Focal weakness , Numbness PD PAST MEDICAL HISTORY - Past Medical History Cardiovascular: Valve disorder Neuro: Other Psych: Anxiety - Past Surgical History Past Surgical History: Yes HEENT: Tonsil/Adenoidectomy - Present Medications Home Medications: Ambulatory Orders Medication Instructions Recorded Confirmed No Known Home Medications [No 03/10/18 03/10/18 Known Home Medications] - Allergies Allergies/Adverse Reactions: Allergies Allergy/AdvReac Type Severity Reaction Status Date / Time acetaminophen [From Midol] Allergy Unknown Verified 03/03/17 14:24 pamabrom [From Midol] Allergy Unknown Verified 03/03/17 14:24 Sulfa (Sulfonamide Allergy Rash Verified 03/03/17 14:24 Antibiotics) steroids Allergy Intermediate Rash Uncoded 01/14/18 11:04 - Social History Does the pt smoke?: No Smoking Status: Never smoker Does the pt drink ETOH?: No Does the pt have substance abuse?: No - Immunizations Immunizations are current?: No Immunizations: TDAP >10years/unknown - POLST Patient has POLST: No PD ED PE NORMAL - Vitals Vital signs reviewed: Yes (normal ) - General General: Alert and oriented X 3, No acute distress, Well developed/nourished - HEENT HEENT: Atraumatic, PERRL, EOMI, Other (dry mucous membranes ) - Neck Neck: Supple, no meningeal sign, No bony TTP - Cardiac Cardiac: RRR, No murmur - Respiratory Respiratory: No respiratory distress, Clear bilaterally - Abdomen Abdomen: Soft, Non tender - Back Back: No CVA TTP, No spinal TTP - Derm Derm: Normal color, Warm and dry, No rash - Extremities Extremities: No deformity, No edema - Neuro Neuro: Alert and oriented X 3, psychiatry physician 2-12 intact, No motor deficit, No sensory deficit, Normal speech Eye Opening: Spontaneous Motor: Obeys Commands Verbal: Oriented GCS Score: 15 - Psych Psych: Normal mood, Normal affect Results - Vitals Vitals: Vital Signs - 24 hr 03/10/18 03/10/18 15:03 17:13 Temperature 36.8 C Heart Rate 84 57 L Respiratory 16 18 Rate Blood Pressure 118/75 106/65 O2 Saturation 100 100 Oxygen O2 Source Room air - EKG (time done) 1506 Rate: Rate (enter#) (92) Rhythm: NSR QRS: Low voltage (borderline) Compare to prior EKG: Unchanged from prior EKG (12-30-17) Computer interpretation: Agree with computer - Labs Labs: Laboratory Tests 03/10/18 03/10/18 03/10/18 15:10 15:10 17:21 WBC 7.5 RBC 3.97 L Hgb 12.0 Hct 34.8 L MCV 87.8 MCH 30.2 MCHC 34.4 RDW 12.5 Plt Count 188 MPV 8.8 Neut # (Auto) 5.3 Lymph # (Auto) 1.5 [place] # (Auto) 0.6 Eos # (Auto) 0.1 Baso # (Auto) 0.0 Absolute Nucleated RBC 0.00 Nucleated RBC % 0.0 Sodium Potassium Chloride Carbon Dioxide Anion Gap BUN Creatinine Estimated GFR (MDRD) Glucose Calcium Total Bilirubin AST ALT Alkaline Phosphatase Troponin I Total Protein Albumin Globulin Albumin/Globulin Ratio Lipase Urine Color YELLOW Urine Clarity CLOUDY Urine pH 7.0 Ur Specific [place] 1.015 1.015 Urine Protein NEGATIVE Urine Glucose (UA) NEGATIVE Urine Ketones NEGATIVE Urine Occult Blood NEGATIVE Urine Nitrite NEGATIVE Urine Bilirubin NEGATIVE Urine Urobilinogen 0.2 (NORMAL) Ur Leukocyte Esterase NEGATIVE Urine RBC 0-5 Urine WBC 4-5 Ur Squamous Epith Cells MANY Squamous H Amorphous Sediment Moderate Urine Bacteria Moderate H Ur Microscopic Review INDICATED Urine Culture Comments NOT INDICATED Urine HCG, Qual POSITIVE 03/10/18 03/10/18 17:21 17:21 WBC RBC Hgb Hct MCV MCH MCHC RDW Plt Count MPV Neut # (Auto) Lymph # (Auto) [place] # (Auto) Eos # (Auto) Baso # (Auto) Absolute Nucleated RBC Nucleated RBC % Sodium 134 L Potassium 3.3 L Chloride 105 Carbon Dioxide 24 Anion Gap 5.0 L BUN 6 Creatinine 0.4 Estimated GFR (MDRD) 203 Glucose 73 Calcium 8.7 Total Bilirubin 0.6 AST 16 ALT < 10 L Alkaline Phosphatase 38 L Troponin I < 0.04 Total Protein 7.6 Albumin 4.2 Globulin 3.4 Albumin/Globulin Ratio 1.2 Lipase 24 Urine Color Urine Clarity Urine pH Ur Specific [place] Urine Protein Urine Glucose (UA) Urine Ketones Urine Occult Blood Urine Nitrite Urine Bilirubin Urine Urobilinogen Ur Leukocyte Esterase Urine RBC Urine WBC Ur Squamous Epith Cells Amorphous Sediment Urine Bacteria Ur Microscopic Review Urine Culture Comments Urine HCG, Qual Procedures - Bedside sono Bedside sono by EMP: With use of bedside ultrasound the fetus is imaged and appears viable the biparietal diameter suggest a age of 14 weeks 3 days and the heart rate is 144 bpm. - IVC sono (time) 1705 Bedside IVC sono: IVC measures (cm) (1.17), IVC collapsed c insp (cm) (complete) , Dehydration (est 1 liter deficit) PD MEDICAL DECISION MAKING - ED course Complexity details: reviewed old records, reviewed results, re-evaluated patient , considered differential, d/w patient, d/w family ED course: 22 y/o female in 1st trimester had a near syncopal episode at work today and this appears to be related to dehydration related to unseasonably warm weather in [place]. An IV is begun and she is given IV saline. - Sepsis Event Vital Signs: Vital Signs - 24 hr 03/10/18 03/10/18 15:03 17:13 Temperature 36.8 C Heart Rate 84 57 L Respiratory 16 18 Rate Blood Pressure 118/75 106/65 O2 Saturation 100 100 Oxygen O2 Source Room air Departure - Departure Disposition: Home, Self Care Clinical Impression: Dehydration Condition: Stable Instructions: ED Dehydration Follow-Up: JARED CAMPA [Primary Care Provider] - Forms: Activity restrictions
[2018-03-10 17:27] LABS: BASOPHILS % (AUTO) 0.5 %; EOSINOPHILS # (AUTO) 0.1 10^3/uL (0.0-0.7); EOSINOPHILS % (AUTO) 1.1 %; LYMPHOCYTES # (AUTO) 1.5 10^3/uL (1.5-3.5); LYMPHOCYTES % (AUTO) 19.8 %; MEAN CORPUSCULAR HEMOGLOBIN 30.2 pg (27.0-31.0); MEAN CORPUSCULAR HGB CONC 34.4 g/dL (32.0-36.0); MEAN CORPUSCULAR VOLUME 87.8 fL (81.0-99.0); MEAN PLATELET VOLUME 8.8 fL (7.9-10.8); MONOCYTES # (AUTO) 0.6 10^3/uL (0.0-1.0); MONOCYTES % (AUTO) 8.6 %; NEUTROPHILS # (AUTO) 5.3 10^3/uL (1.5-6.6); PLT - PLATELET COUNT 188 10^3/uL (130-450); RED BLOOD COUNT 3.97 10^6/uL (4.20-5.40); RED CELL DISTRIBUTION WIDTH 12.5 % (12.0-15.0); WHITE BLOOD COUNT 7.5 x10^3/uL (4.8-10.8)
[2018-03-10 17:38] LABS: ALBUMIN 4.2 g/dL (3.2-5.5); ALBUMIN/GLOBULIN RATIO 1.2 (1.0-2.2); ALKALINE PHOSPHATASE 38 IU/L (42-121); ALT ALANINE AMINOTRANSFERASE < 10 IU/L (10-60); AST ASPARTATE AMINOTRANSFERASE 16 IU/L (10-42); BILIRUBIN,TOTAL 0.6 mg/dL (0.2-1.0); BUN - BLOOD UREA NITROGEN 6 mg/dL (6-20); CALCIUM 8.7 mg/dL (8.5-10.3); CARBON DIOXIDE - CO2 24 mmol/L (21-32); CHLORIDE 105 mmol/L (101-111); CREATININE 0.4 mg/dL (0.4-1.0); GFR - MDRD 203 (>89); GLUCOSE 73 mg/dL (70-100); LIPASE 24 U/L (22-51); SODIUM 134 mmol/L (135-145); TOTAL PROTEIN 7.6 g/dL (6.7-8.2)
[2018-03-10 18:16] VITALS: BP 108/66
== END 2018-03-10 18:15 | disposition home or self-care (01) ==
LOC: ED 14:59
DX: O99.282 Endocrine, nutritional and metabolic diseases complicating pregnancy, second trimester (principal); E86.0 Dehydration; Z3A.14 14 weeks gestation of pregnancy
CPT/HCPCS: 36415; 80053; 81001; 81003; 81025; 83690; 84484; 85025; 87086; 93005; 96360; 99283; 99284

== ENCOUNTER 2018-04-20 10:58 | Outpatient (CLI) | payer OTHER | END 2018-04-20 10:59 | disposition short-term general hospital (02) | LOC: EMS 10:58 | PROVIDERS: ATTEND Surgery | DX: O99.89 Other specified diseases and conditions complicating pregnancy, childbirth and the puerperium (principal); R10.9 Unspecified abdominal pain; R42 Dizziness and giddiness; M54.9 Dorsalgia, unspecified; R11.0 Nausea | CPT/HCPCS: A0425; A0429 ==